=== PATIENT | female | born 1940 | race Caucasian/White ===

== ENCOUNTER 2018-12-01 13:11 | Inpatient (IN) | payer MEDICARE, MEDICAID ==
[2018-12-01] VITALS (8 sets, daily range): BP systolic 80–119; BP diastolic 51–88; Ht 167.6 cm; Wt 82.0 kg
[~2018-12-01] VITALS: Ht 167.6 cm; Wt 82.0 kg
[2018-12-01 14:13] LABS: PLATELET COUNT 306 x10^3mcL (130-400)
[2018-12-01 14:27] LABS: BASOPHIL % 0 % (0-2); RED CELL DISTRIBUTION WIDTH 21.8 % (11.5-14.5)
[2018-12-01] MEDS ORDERED: LASIX (14:32)
[2018-12-01] MEDS ORDERED: ZOLOFT (14:32)
[2018-12-01 14:42] LABS: ALBUMIN 3.6 g/dL (3.4-5.0); ALKALINE PHOSPHATASE 61 U/L (46-116); ALT/SGPT 216 U/L (14-59); AST/SGOT 659 U/L (15-37); BILIRUBIN TOTAL 3.41 mg/dL (0.20-1.00); CALCIUM 9.1 mg/dL (8.5-10.1); CARBON DIOXIDE 19.5 mmol/L (21-32); CHLORIDE SERUM 96 mmol/L (98-107); CREATININE SERUM 3.3 mg/dL (0.6-1.0); POTASSIUM SERUM 4.3 mmol/L (3.5-5.1); SODIUM SERUM 137 mmol/L (136-145); TOTAL PROTEIN, SERUM 6.7 g/dL (6.4-8.2)
[2018-12-01 14:50] LABS: GLUCOSE SERUM 38 mg/dL (74-106)
[2018-12-01 15:00] LABS: CK-MB 66.7 ng/mL (0-3.6)
[2018-12-01 15:55] LABS: UA SPECIFIC GRAVITY >=1.030 (1.005-1.035); microscopic required? YES; urine erythrocyte NEGATIVE (NEGATIVE)
[2018-12-01 17:55] LABS: MAGNESIUM 2.5 mg/dL (1.8-2.4)
[2018-12-01 17:58] LABS: CHOLESTEROL/HDL RATIO 5.2
[2018-12-01 18:22] LABS: PHOSPHOROUS 9.2 mg/dL (2.5-4.9)
[2018-12-02] VITALS (11 sets, daily range): BP systolic 42–109; BP diastolic 22–54
[2018-12-02 08:05] LABS: PLATELET COUNT 233 x10^3mcL (130-400)
[2018-12-02 08:15] LABS: CALCIUM 7.9 mg/dL (8.5-10.1); CARBON DIOXIDE 16.7 mmol/L (21-32); CHLORIDE SERUM 97 mmol/L (98-107); CREATININE SERUM 3.9 mg/dL (0.6-1.0); MAGNESIUM 2.5 mg/dL (1.8-2.4); POTASSIUM SERUM 5.3 mmol/L (3.5-5.1); SODIUM SERUM 137 mmol/L (136-145)
[2018-12-02 08:23] LABS: GLUCOSE SERUM 11 mg/dL (74-106)
[2018-12-02 08:54] LABS: RED CELL DISTRIBUTION WIDTH 22.1 % (11.5-14.5)
[2018-12-02 09:08] LABS: PHOSPHOROUS 11.7 mg/dL (2.5-4.9)
[2018-12-02 11:02] LABS: BAND NEUTROPHIL 21 % (0-10); BASOPHIL 0 % (0-2); METAMYELOCTE 3 % (0-2); MONOCYTE 5 % (0-7); MYELOCYTE 1 % (0-2); SEGMENTED NEUTROPHILS 60 % (37-75)
[2018-12-02 11:04] LABS: burr cell (echinocyte) 1+; ovalocyte/elliptocyte 1+; rbc morphology (normal/abnorm) ABNORMAL (NORMAL); tear drop cell (dacryocyte) 1+
== END 2018-12-02 19:50 | disposition expired | DRG 871 ==
LOC: ED 13:11 → IC 17:23
PROVIDERS: Emergency Medicine; ADMIT Internal Medicine
PROC: 5A1945Z Respiratory Ventilation, 24-96 Consecutive Hours (ICD-10-PCS; principal; 2018-12-01)
PROC: 0BH17EZ Insertion of Endotracheal Airway into Trachea, Via Natural or Artificial Opening (ICD-10-PCS; 2018-12-01)
PROC: 02HV33Z Insertion of Infusion Device into Superior Vena Cava, Percutaneous Approach (ICD-10-PCS; 2018-12-02)
PROC: 30233K1 Transfusion of Nonautologous Frozen Plasma into Peripheral Vein, Percutaneous Approach (ICD-10-PCS; 2018-12-02)
DX: A41.9 Sepsis, unspecified organism (principal); J96.21 Acute and chronic respiratory failure with hypoxia; J18.9 Pneumonia, unspecified organism; I21.A1 Myocardial infarction type 2; G93.41 Metabolic encephalopathy; I50.43 Acute on chronic combined systolic (congestive) and diastolic (congestive) heart failure; N17.0 Acute kidney failure with tubular necrosis; B18.1 Chronic viral hepatitis B without delta-agent; J44.1 Chronic obstructive pulmonary disease with (acute) exacerbation; E87.2 Acidosis; R65.20 Severe sepsis without septic shock; K72.90 Hepatic failure, unspecified without coma; E16.2 Hypoglycemia, unspecified; I95.9 Hypotension, unspecified; I44.0 Atrioventricular block, first degree; I45.10 Unspecified right bundle-branch block; E83.41 Hypermagnesemia; N18.9 Chronic kidney disease, unspecified; E83.39 Other disorders of phosphorus metabolism; Z68.31 Body mass index [BMI] 31.0-31.9, adult; Z86.711 Personal history of pulmonary embolism; Z79.01 Long term (current) use of anticoagulants; Z66 Do not resuscitate
CPT/HCPCS: 36556; 36600; 82962; 83880; A4628; C9113; J1265; J1642; J1940; J1956; J2370; J2543; J2704; J3010; J3430; J3490; J7030; J7040; J7042; J7050; J7613; J7620; J7644; P9059; Q0092; Q0163